=== PATIENT | male | born 1950 | race Caucasian/White ===

== ENCOUNTER 2022-10-29 05:55 | Inpatient (IN) ==
[2022-10-24 12:03] LABS: Basophils % 0.6 % (0.0-0.8); Eosinophils # 0.1 10*3/uL (0.0-0.87); Eosinophils % 2.1 % (0.00-10.9); Hematocrit 43.7 VOL% (42.0-52.0); Hemoglobin 14.4 GM/DL (14.0-18.0); Immature Granulocytes % 0.4 %; Immature Granulocytes Absolute 0.03 #; Lymphocytes # 1.7 10*3/uL (1.4-4.0); Mean Corpuscular Volume 92.4 FL (87-102); Mean Platelet Volume 10.5 FL (9.6-12.0); Monocytes # 0.7 10*3/uL (0.11-0.8); Monocytes % 9.7 % (1.7-12.7); Neutrophils % 61.2 % (38.7-73.9); Platelet Count 151 T/CUMM (130-400); Red Blood Count 4.73 MC/CUMM (3.8-5.5); Red Cell Distribution Width 13.2 % (9.3-17.3); White Blood Count 6.7 T/CUMM (4-12)
[2022-10-24 12:41] LABS: Albumin 4.2 G/DL (3.4-5.0); Bilirubin,Total 0.7 MG/DL (0.20-1.00); Calcium 9.4 MG/DL (8.5-10.1); Potassium 4.3 MMOL/L (3.5-5.1); Total Protein 7.4 G/DL (6.4-8.2)
[~2022-10-29 05:55] MED LIST: LACTATED RINGERS 1,000 ML IV SCH; LIDOCAINE 2% 5 ML VIAL ONE; ONDANSETRON 4 MG/2 ML VIAL ONE; ROCURONIUM 50 MG/5 ML VIAL IV ONE; SEVOFLURANE 1 UNIT/15 MINUTE INH ONE; propofoL 200 MG/20 ML VIAL IV ONE
[2022-10-29] MEDS ORDERED: cefTRIAXone 1,000 MG in SODIUM CHLORIDE 0.9% 100 ML IV ONE (06:00)
[2022-10-29] MEDS ORDERED: ALVIMOPAN 12 MG CAPSULE PO ONE (06:00)
[2022-10-29] MEDS ORDERED: fentaNYL 100 MCG/2 ML VIAL ONE (06:02)
[2022-10-29] MEDS ORDERED: SUFentanil 50 MCG/ML AMP ONE (06:26)
[2022-10-29] MEDS ORDERED: KETAMINE 500 MG/10 ML VIAL ONE (06:26)
[2022-10-29] MEDS ORDERED: buprenorphine HCL 0.3 MG/ML VIAL ONE (06:31)
[2022-10-29] MEDS ORDERED: ACETAMINOPHEN 500 MG TABLET PO ONE (06:37)
[2022-10-29] MEDS ORDERED: FAMOTIDINE 20 MG TABLET PO ONE (06:37)
[2022-10-29] MEDS ORDERED: ROPIVACAINE 0.5% 30 ML VIAL ONE (06:40)
[2022-10-29] MEDS ORDERED: DESFLURANE 1 UNIT/15 MINUTE INH ONE (07:33)
[2022-10-29] MEDS ORDERED: GLYCOPYRROLATE 0.4 MG/2 ML VIAL ONE (07:33)
[2022-10-29] MEDS ORDERED: PHENYLEPHRINE 1 MG/10 ML SYRINGE IV ONE ×2 (07:33→08:32)
[2022-10-29] MEDS ORDERED: LACTATED RINGERS 1,000 ML IV ONE ×2 (07:33→10:10)
[2022-10-29] MEDS ORDERED: ROCURONIUM 50 MG/5 ML VIAL IV ONE ×2 (07:39→09:22)
[2022-10-29] MEDS ORDERED: ePHEDrine 50 MG/ML VIAL ONE (07:42)
[2022-10-29] MEDS ORDERED: PHENYLEPHRINE 10 MG/1 ML VIAL IV ONE (08:26)
[2022-10-29] MEDS ORDERED: SODIUM CHLORIDE 0.9% 250 ML IV ONE (08:26)
[2022-10-29] MEDS ORDERED: ALBUMIN 5% 25.0 GM/500 ML VIAL IV ONE (09:32)
[2022-10-29] MEDS ORDERED: SUGAMMADEX 200 MG/2 ML VIAL IV ONE (10:15)
[2022-10-29] MEDS ORDERED: ONDANSETRON 4 MG/2 ML VIAL IV PRN (11:32)
[2022-10-29] MEDS ORDERED: diphenhydrAMINE 50 MG/1 ML VIAL IV PRN (11:32)
[2022-10-29] MEDS ORDERED: SIMETHICONE CHEW 125 MG TABLET PO PRN (11:32)
[2022-10-29] MEDS ORDERED: LACTULOSE 20 GM/30 ML UDCUP PO PRN (11:32)
[2022-10-29] MEDS ORDERED: PROMETHAZINE 25 MG/1 ML VIAL IM PRN (11:32)
[2022-10-29] MEDS ORDERED: DEXTROSE 10% 250 ML BAG IV PRN (11:35)
[2022-10-29] MEDS ORDERED: GLUCAGON 1 MG VIAL IM PRN (11:35)
[2022-10-29 11:37] LABS: Bacteria,Urine Occasional /HPF (Few); Mucus,Urine Occasional /LPF (Occasional); RBC,Urine 4 /HPF (0-4)
[2022-10-29 11:38] LABS: Bilirubin,Urine Negative (Negative); Blood, Urine Trace mg/dL (Negative); Glucose,Urine (UA) 100 mg/dL (Negative); Ketones,Urine Trace mg/dL (Negative); Nitrite,Urine Negative (Negative); Protein,Urine Negative (Negative); Urine Appearance Clear (Clear); Urine Color Yellow (Yellow); Urine Specific Gravity > 1.030 (1.001-1.035); Urine Urobilinogen 0.2 eU/dL (<2.0); Urine pH 5.5 (4.5-8.0)
[2022-10-29] MEDS ORDERED: MIDAZOLAM 2 MG/2 ML VIAL ONE (12:07)
[2022-10-29 12:35] LABS: Basophils # 0.1 10*3/uL (0.0-0.2); Basophils % 0.5 % (0.0-0.8); Eosinophils # 0.1 10*3/uL (0.0-0.87); Eosinophils % 0.7 % (0.00-10.9); Hematocrit 41.6 VOL% (42.0-52.0); Hemoglobin 13.6 GM/DL (14.0-18.0); Immature Granulocytes % 0.6 %; Immature Granulocytes Absolute 0.06 #; Lymphocytes # 2.1 10*3/uL (1.4-4.0); Lymphocytes % 19.8 % (21.2-54.2); Mean Corpuscular HGB Conc 32.7 GM/DL (32-36); Mean Corpuscular Volume 93.5 FL (87-102); Mean Platelet Volume 9.6 FL (9.6-12.0); Monocytes # 0.8 10*3/uL (0.11-0.8); Monocytes % 7.8 % (1.7-12.7); Neutrophils % 70.6 % (38.7-73.9); Platelet Count 164 T/CUMM (130-400); Red Blood Count 4.45 MC/CUMM (3.8-5.5); Red Cell Distribution Width 13.7 % (9.3-17.3); White Blood Count 10.6 T/CUMM (4-12)
[2022-10-29 12:59] LABS: Calcium 8.7 MG/DL (8.5-10.1); Osmolality,Calculated 283.1 MOS/KG (273-304); Potassium 3.8 MMOL/L (3.5-5.1)
[2022-10-29] MEDS: SODIUM CHLORIDE 0.9% 1,000 ML IV SCH ×2 (13:30→22:09)
[2022-10-29] MEDS: OXYBUTYNIN 5 MG TABLET PO SCH ×2 (14:11→20:15)
[2022-10-29] MEDS: ACETAMINOPHEN 325 MG TABLET PO SCH ×2 (14:12→20:14)
[2022-10-29] MEDS: HYDROmorphone 1 MG/1 ML SYRINGE IV PRN ×2 (15:33→18:22)
[2022-10-29] MEDS ORDERED: propofoL 200 MG/20 ML VIAL IV ONE (15:56)
[2022-10-29] MEDS ORDERED: INSULIN REGULAR 100 UNIT/ML SUBCUT SCH (16:30)
[2022-10-29] MEDS: INSULIN LISPRO 100 UNIT/ML SUBCUT SCH ×2 (16:32→21:01)
[2022-10-29] MEDS: oxyCODONE/ACETAMINOPHEN 5-325 MG TABLET PO PRN ×2 (16:48→20:16)
[2022-10-29] MEDS ORDERED: MELATONIN 3 MG TABLET PO PRN (17:38)
[2022-10-29] MEDS: ALVIMOPAN 12 MG CAPSULE PO SCH (20:14)
[2022-10-29] MEDS: FAMOTIDINE 20 MG TABLET PO SCH (20:15)
[2022-10-30] MEDS: ACETAMINOPHEN 325 MG TABLET PO SCH ×4 (03:45→20:21)
[2022-10-30 06:13] LABS: Basophils % 0.2 % (0.0-0.8); Eosinophils # 0.1 10*3/uL (0.0-0.87); Eosinophils % 0.6 % (0.00-10.9); Hematocrit 40.3 VOL% (42.0-52.0); Immature Granulocytes % 0.6 %; Immature Granulocytes Absolute 0.07 #; Lymphocytes # 1.9 10*3/uL (1.4-4.0); Lymphocytes % 15.4 % (21.2-54.2); Mean Corpuscular HGB Conc 32.3 GM/DL (32-36); Mean Corpuscular Volume 92.2 FL (87-102); Mean Platelet Volume 10.2 FL (9.6-12.0); Monocytes # 1.1 10*3/uL (0.11-0.8); Monocytes % 8.7 % (1.7-12.7); Neutrophils % 74.5 % (38.7-73.9); Platelet Count 162 T/CUMM (130-400); Red Blood Count 4.37 MC/CUMM (3.8-5.5); Red Cell Distribution Width 13.6 % (9.3-17.3); White Blood Count 12.5 T/CUMM (4-12)
[2022-10-30 06:29] LABS: Calcium 8.4 MG/DL (8.5-10.1); Osmolality,Calculated 280.1 MOS/KG (273-304); Potassium 3.9 MMOL/L (3.5-5.1)
[2022-10-30] MEDS ORDERED: SODIUM CHLORIDE 0.9% 500 ML IV ONE (07:28)
[2022-10-30] MEDS: INSULIN LISPRO 100 UNIT/ML SUBCUT SCH ×4 (08:17→20:22)
[2022-10-30] MEDS: ALVIMOPAN 12 MG CAPSULE PO SCH ×2 (08:17→20:21)
[2022-10-30] MEDS: FAMOTIDINE 20 MG TABLET PO SCH ×2 (08:17→20:21)
[2022-10-30] MEDS: OXYBUTYNIN 5 MG TABLET PO SCH ×3 (08:17→20:21)
[2022-10-30] MEDS: cefTRIAXone 1,000 MG in SODIUM CHLORIDE 0.9% 100 ML IV SCH (08:18)
[2022-10-30] MEDS: SODIUM CHLORIDE 0.9% 1,000 ML IV SCH (09:58)
[2022-10-30] MEDS ORDERED: MAGNESIUM SULF RIDER 2 GM/50 ML PREMIX IV ONE (10:00)
[2022-10-30 14:27] LABS: Calcium 8.2 MG/DL (8.5-10.1); Osmolality,Calculated 275.4 MOS/KG (273-304); Potassium 3.9 MMOL/L (3.5-5.1)
[2022-10-30] MEDS ORDERED: NEOMYCIN/POLYMYXIN/BACITRACIN OINT 0.9 GM PACK TOP PRN (14:40)
[2022-10-30] MEDS ORDERED: NEOMYCIN/POLYMYXIN/BACITRACIN OINT 28.4 GM TUBE TOP PRN (17:10)
[2022-10-30] MEDS: HYDROmorphone 1 MG/1 ML SYRINGE IV PRN ×2 (18:55→23:48)
[2022-10-30] MEDS: oxyCODONE/ACETAMINOPHEN 5-325 MG TABLET PO PRN (20:24)
[2022-10-31] MEDS: ACETAMINOPHEN 325 MG TABLET PO SCH ×3 (02:26→14:07)
[2022-10-31 05:20] LABS: Basophils % 0.4 % (0.0-0.8); Eosinophils # 0.2 10*3/uL (0.0-0.87); Hematocrit 35.6 VOL% (42.0-52.0); Hemoglobin 11.6 GM/DL (14.0-18.0); Immature Granulocytes % 0.5 %; Immature Granulocytes Absolute 0.04 #; Lymphocytes # 1.6 10*3/uL (1.4-4.0); Lymphocytes % 21.1 % (21.2-54.2); Mean Corpuscular HGB Conc 32.6 GM/DL (32-36); Mean Platelet Volume 9.9 FL (9.6-12.0); Monocytes # 0.7 10*3/uL (0.11-0.8); Monocytes % 8.9 % (1.7-12.7); Neutrophils % 67.1 % (38.7-73.9); Platelet Count 143 T/CUMM (130-400); Red Blood Count 3.87 MC/CUMM (3.8-5.5); Red Cell Distribution Width 13.7 % (9.3-17.3); White Blood Count 7.7 T/CUMM (4-12)
[2022-10-31 05:49] LABS: Calcium 8.6 MG/DL (8.5-10.1); Potassium 3.8 MMOL/L (3.5-5.1)
[2022-10-31] MEDS: cefTRIAXone 1,000 MG in SODIUM CHLORIDE 0.9% 100 ML IV SCH (08:32)
[2022-10-31] MEDS: FAMOTIDINE 20 MG TABLET PO SCH (08:33)
[2022-10-31] MEDS: ALVIMOPAN 12 MG CAPSULE PO SCH (08:33)
[2022-10-31] MEDS: OXYBUTYNIN 5 MG TABLET PO SCH ×2 (08:33→14:07)
[2022-10-31] MEDS ORDERED: INSULIN GLARGINE 100 UNIT/ML SUBCUT SCH (09:00)
[2022-10-31] MEDS: INSULIN LISPRO 100 UNIT/ML SUBCUT SCH ×2 (09:57→11:58)
[2022-10-31 15:49] VITALS: BP 148/82
== END 2022-10-31 17:10 | disposition home or self-care (01) | DRG 707 ==
LOC: N.SDSINP 05:55 → N.3E 13:09
PROVIDERS: ADMIT Surgery; ATTEND Surgery